=== PATIENT | female | born 1985 | race Caucasian/White ===

== ENCOUNTER 2017-06-09 14:34 | Emergency (ER) | payer BC ==
--- NOTE | 2017-06-09 14:44 | PDOC ---
History of Present Illness - General History Source: Patient Exam Limitations: No Limitations - History of Present Illness Initial Comments: 06/09/17 15:00 32 y/o F (LMP: last week) with no PMhx presents to the ED with abdominal cramping since last night. She reports the pain is intermittent. She denies recent travel. Denies changes in food intake. Denies history of GI problems. She reports her brother was recently diagnosed with diverticulosis. Denies alcohol, tobacco, or drug use. Denies fever, chills, nausea, vomiting, diarrhea , constipation. She denies dysuria, frequency, urgency, and hematuria. Allergies: none <Flavia Ellis - Last Filed: 06/09/17 18:58> <Bogdan Scott - Last Filed: 06/09/17 19:15> - General Chief Complaint: Pain Stated Complaint: ABD PAIN Time Seen by Provider: 06/09/17 14:44 Past History <Flavia Ellis - Last Filed: 06/09/17 18:58> - Past Medical History Asthma: No Cancer: No Cardiac Disorders: No Diabetes: No HTN: No Seizures: No Thyroid Disease: No - Psycho/Social/Smoking Cessation Hx Anxiety: No Suicidal Ideation: No Smoking History: Never smoked Have you smoked in the past 12 months: No Hx Alcohol Use: No Drug/Substance Use Hx: No Substance Use Type: None Hx Substance Use Treatment: No <Bogdan Scott - Last Filed: 06/09/17 19:15> - Past Medical History Allergies/Adverse Reactions: Allergies Allergy/AdvReac Type Severity Reaction Status Date / Time No Known Allergies Allergy Verified 06/09/17 14:48 Home Medications: Ambulatory Orders NK [No Known Home Medication] 06/09/17 Review of Systems - Review of Systems Constitutional: No: Chills, Fever HEENTM: No: Throat Pain Respiratory: No: Cough Cardiac (ROS): No: Chest Pain ABD/GI: Yes: See HPI : No: Dysuria, Frequency, Flank Pain Neurological: No: Headache All Other Systems: Reviewed and Negative <Bogdan Scott - Last Filed: 06/09/17 19:15> *Physical Exam - Vital Signs Last Vital Signs Temp Pulse Resp BP Pulse Ox 98 F 71 18 147/75 100 06/09/17 14:35 06/09/17 14:35 06/09/17 14:35 06/09/17 14:35 06/09/17 14:35 - Physical Exam Comments: 06/09/17 15:00 GENERAL: The patient is awake, alert, and fully oriented, in no acute distress. Well-appearing. HEAD: Normal with no signs of trauma. EYES: Pupils equal, round and reactive to light, extraocular movements intact, sclera anicteric, conjunctiva clear with no pallor. ENT: Ears normal, nares patent, oropharynx clear without exudates. Moist mucous membranes. NECK: Normal range of motion, supple without lymphadenopathy, JVD, or masses. LUNGS: Breath sounds equal, clear to auscultation bilaterally. No wheeze/ crackles. HEART: Regular rate and rhythm, normal S1 and S2 without murmur or rub. ABDOMEN: Discomfort in epigastric region, tender with some guarding in the LLQ, no rebound, no referred pain. Soft/nondistended. BS wnl. No palpable masses. No hepatosplenomegaly. EXTREMITIES: Normal range of motion, no edema. No clubbing or cyanosis. No cords, erythema, or tenderness. NEUROLOGICAL: Cranial nerves II through XII grossly intact. Normal speech, normal gait. PSYCH: Normal mood, normal affect. SKIN: Warm, Dry, normal turgor, no rashes or lesions noted. <Flavia Ellis A - Last Filed: 06/09/17 18:58> ED Treatment Course - LABORATORY CBC & Chemistry Diagram: 06/09/17 15:20 06/09/17 14:51 - RADIOLOGY Radiograph Interpretation: 06/09/17 18:58 Abdomen & Pelvis CT Reported by Dr. Onel Mary Impression: No gross colonic diverticula or wall thickening is present to suggest colitis/acute diverticulitis. 1.6 cm right ovarian cyst/dominant follicle and 1.1 cm left ovarian cyst/dominant follicle. No free air or free fluid in the abdomen pelvis. No CT evidence of an acute process is identified to explain the patient's symptoms. Correlate clinically for further evaluation and follow-up. <Flavia Ellis - Last Filed: 06/09/17 18:58> - LABORATORY CBC & Chemistry Diagram: 06/09/17 15:20 06/09/17 14:51 <Bogdan Scott - Last Filed: 06/09/17 19:15> Medical Decision Making - Medical Decision Making 06/09/17 14:53 32-year-old female with a past medical history presents with persistent and worsening abdominal pain since last night. Associated with anorexia but no nausea/vomiting/diarrhea, no urinary complaints, just cramping pain that is intermittent and predominantly in the upper abdomen. No recent travel/sick contacts/diarrhea change/antibiotics, no surgical history. Vital signs normal. Exam as noted with tenderness greatest in the left lower quadrant but no peritoneal findings. 32-year-old female with worsening abdominal pain since yesterday, localizing findings to the left lower quadrant which could be concerning for colitis versus diverticulitis. As family history of diverticulosis, never had endoscopy/ colonoscopy herself. 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 Labs, urinalysis IV fluids, pain control, nausea control CT of the abdomen and pelvis Reassess 06/09/17 17:01 Labs are within normal limits, no leukocytosis, normal lipase, negative urinalysis. Feels better after pain medications. Awaiting CAT scan, dispo accordingly. 06/09/17 19:12 CT of the abdomen and pelvis is normal except for bilateral 1-1.6 cm ovarian cysts but otherwise uncomplicated. Her pain has resolved, her exam has improved without any focal tenderness or guarding, she is tolerating by mouth, and agrees with discharge plan. Understands return criteria. <Bogdan Sctot - Last Filed: 06/09/17 19:15> *DC/Admit/Observation/Transfer - Attestations Scribe Attestion: 06/09/17 15:00 Documentation prepared by Flavia Ellis, acting as medical sales for Bogdan Scott MD. <Flavia Ellis - Last Filed: 06/09/17 18:58> <Bogdan Scott - Last Filed: 06/09/17 19:15> Diagnosis at time of Disposition: Abdominal pain Qualifiers: Abdominal location: generalized Qualified Code(s): R10.84 - Generalized abdominal pain Cyst of ovary Qualifiers: Laterality: bilateral Qualified Code(s): N83.201 - Unspecified ovarian cyst, right side; N83.202 - Unspecified ovarian cyst, left side - Discharge Dispostion Disposition: HOME Condition at time of disposition: Improved - Patient Instructions Printed Discharge Instructions: DI for Abdominal Pain-Adult, DI for Ovarian Cyst Additional Instructions: Activity as tolerated, stay hydrated. Blood tests, urine test, and a CAT scan of the abdomen and pelvis showed no acute abnormalities other than ovarian cysts that were otherwise uncomplicated. Your symptoms could have been due to a mild viral stomach infection, which is usually self resolving. You should follow up with your primary doctor as soon as possible regarding today's emergency department visit. Return to the emergency department for any new or concerning symptoms, including persistent or worsening pain, bloody vomit or stool, fevers or chills , dehydration.
[2017-06-09] MEDS ORDERED: ONDANSETRON 4 MG/2 ML VIAL IVPB ONE (14:51)
[2017-06-09] MEDS ORDERED: SODIUM CHLORIDE 1,000 ML IV ONE (14:51)
[2017-06-09] MEDS ORDERED: morphine CARPU-JECT 4 MG/1 ML DISP.SYRIN IVPUSH ONE (14:51)
[2017-06-09 14:52] VITALS: BP 147/75; PULSE 71; TEMP 98; BMI 20.5
[2017-06-09] MEDS ORDERED: morphine CARPU-JECT 2 MG/1 ML DISP.SYRIN ONE (14:59)
[2017-06-09] MEDS ORDERED: ONDANSETRON 4 MG/2 ML VIAL ONE (14:59)
[2017-06-09 15:38] LABS: BASOPHIL 0.4 % (0-2.0); EOSINOPHIL 1.4 % (0-4.5); MCH 30.8 pg (25.7-33.7); MCHC 34.3 g/dl (32.0-36.0); MEAN CELL VOLUME 89.7 fl (80-96); MEAN PLT VOLUME 9.4 fl (7.5-11.1); NEUTROPHILS 63.9 % (42.8-82.8); PLATELET COUNT 238 K/MM3 (134-434); RDW 11.6 % (11.6-15.6); WHITE BLOOD COUNT 8.1 K/mm3 (4.0-10.8)
[2017-06-09 15:43] LABS: PH,URINE 6.5 (4.5-8); URINE APPEARANCE Clear; URINE BILIRUBIN Negative (NEGATIVE); URINE BLOOD Negative (NEGATIVE); URINE GLUCOSE (UA) Negative (NEGATIVE); URINE KETONE Negative (NEGATIVE); URINE LEUK ESTERASE Negative (NEGATIVE); URINE NITRITE Negative (NEGATIVE); URINE PROTEIN Negative (NEGATIVE); URINE UROBILINOGEN 0.2 (0.2-1.0)
[2017-06-09 15:44] LABS: URINE COLOR YELLOW
[2017-06-09 15:57] LABS: ALBUMIN 4.8 g/dl (3.5-5.0); ALK PHOS 48 U/L (32-92); ANION GAP 8 (8-16); CALCIUM 10.1 mg/dl (8.4-10.2); CO2 27 mmol/L (22-28); CREATININE 0.6 mg/dl (0.6-1.3); GLUCOSE,RANDOM 99 mg/dl (74-106); SGOT/AST 21 U/L (10-42); SGPT/ALT 20 U/L (10-40); TOT PROT 7.4 g/dl (6.4-8.3)
== END 2017-06-09 19:36 | disposition home or self-care (01) ==
LOC: FER 14:34
PROC: 3E033NZ Introduction of Analgesics, Hypnotics, Sedatives into Peripheral Vein, Percutaneous Approach (ICD-10-PCS; principal; 2017-06-09)
PROC: 3E033GC Introduction of Other Therapeutic Substance into Peripheral Vein, Percutaneous Approach (ICD-10-PCS; 2017-06-09)
PROC: 3E0337Z Introduction of Electrolytic and Water Balance Substance into Peripheral Vein, Percutaneous Approach (ICD-10-PCS; 2017-06-09)
DX: N83.202 Unspecified ovarian cyst, left side (principal); N83.201 Unspecified ovarian cyst, right side
CPT/HCPCS: 36415; 74177-TC; 80053; 81003; 83690; 84703; 85025; 99284-25

== ENCOUNTER 2019-01-01 15:26 | Emergency (ER) | payer BC ==
[2019-01-01 15:33] VITALS: BP 98/81; PULSE 77; TEMP 97.7; BMI 23.1
--- NOTE | 2019-01-01 16:14 | PDOC ---
History of Present Illness - General Chief Complaint: Pain, Acute Stated Complaint: LEG PAIN Time Seen by Provider: 01/01/19 15:55 History Source: Patient Exam Limitations: No Limitations - History of Present Illness Initial Comments: 01/01/19 16:08 Patient is 6 months and sent from [facility] after clearance for evaluation of pain to her right leg. Has suffered from a tortuous and painful varicosities pain and last and was concerned may have a blood clot in her leg. Denies fever, denies swelling to her right leg or calf, denies redness or heat. Has no history of blood clots. Timing/Duration: getting worse, changing over time, intermittent Severity: mild, moderate Associated Symptoms: reports: denies symptoms. denies: cough, fever/chills, headaches Past History - Travel Traveled outside of the country in the last 30 days: No Close contact w/someone who was outside of country & ill: No - Past Medical History Allergies/Adverse Reactions: Allergies Allergy/AdvReac Type Severity Reaction Status Date / Time No Known Allergies Allergy Verified 01/01/19 15:33 Home Medications: Ambulatory Orders Pnv No.95/Ferrous Fum/Folic AC [ Formula] 1 each PO DAILY 01/01/19 Asthma: No Cancer: No Cardiac Disorders: No COPD: No Diabetes: No HTN: No Seizures: No Thyroid Disease: No - Suicide/Smoking/Psychosocial Hx Smoking History: Never smoked Have you smoked in the past 12 months: No Hx Alcohol Use: No Drug/Substance Use Hx: No Substance Use Type: None Hx Substance Use Treatment: No Review of Systems - Review of Systems Able to Perform ROS?: Yes Is the patient limited Kazakh proficient: Yes Constitutional: Yes: See HPI. No: Symptoms Reported, Chills, Fever, Malaise HEENTM: Yes: See HPI. No: Symptoms Reported Respiratory: Yes: See HPI. No: Symptoms reported, Cough, Shortness of Breath Musculoskeletal: Yes: Symptoms Reported, See HPI, Muscle Pain Integumentary: Yes: Symptoms Reported, See HPI, Other (large torturous vericosity to inner right leg) *Physical Exam - Vital Signs Last Vital Signs Temp Pulse Resp BP Pulse Ox 97.7 F 77 14 98/81 99 01/01/19 15:30 01/01/19 15:30 01/01/19 15:30 01/01/19 15:30 01/01/19 15:30 - Physical Exam General Appearance: Yes: Nourished, Appropriately Dressed HEENT: positive: SHANNEN, Normal ENT Inspection, TMs Normal, Pharynx Normal Neck: positive: Supple Respiratory/Chest: positive: Lungs Clear Gastrointestinal/Abdominal: positive: Soft Extremity: positive: Normal Capillary Refill, Normal Range of Motion. negative : Normal Inspection, Swelling Integumentary: positive: Other (Fortress and tender varicosity running along the inner aspect of her right leg extending from the groin down past mid tibia. Is soft, no erythema, no swelling, calf circumference is equal to left calf circumference. Is able to flex and extend foot, without any reproduce pain or Homans sign. Neurovascular intact to foot with strong pulses. Sensation is intact. There is no evidence of DVT). negative: Normal Color Neurologic: positive: medical stenographer II-XII NML intact, Fully Oriented, Alert, Normal Mood/ Affect, Normal Response, Motor Strength 5/5 Moderate Sedation - Procedure Monitoring Vital Signs: Procedure Monitoring Vital Signs Temperature 97.7 F 01/01/19 15:30 Pulse Rate 77 01/01/19 15:30 Respiratory Rate 14 01/01/19 15:30 Blood Pressure 98/81 01/01/19 15:30 O2 Sat by Pulse Oximetry (%) 99 01/01/19 15:30 Medical Decision Making - Medical Decision Making 01/01/19 16:13 Patient has no clinical evidence of DVT meaning no swelling, no calf tenderness , no history of same. Reports Dr. Roberts had thoughts of same and agrees did not feel ultrasound is necessary at this point. We will encourage continued use of compression stockings and rest/elevation and has a follow-up appointment with [facility] next week. Reviewed signs and symptoms of distress including shortness of breath, fevers, swelling or worsened pain discoloration to leg and return immediately to ER if necessary *DC/Admit/Observation/Transfer Diagnosis at time of Disposition: Varicose vein of leg Qualifiers: Varicose vein complication: pain Laterality: right Qualified Code(s): I83.811 - Varicose veins of right lower extremity with pain - Discharge Dispostion Disposition: HOME Condition at time of disposition: Stable Decision to Admit order: No - Referrals Referrals: Yumiko Rodney MD [Primary Care Provider] - - Patient Instructions Printed Discharge Instructions: DI for Varicose Veins Additional Instructions: Rest, Avoid heavy lifting or exercise until pain and swelling is resolved or until further directed Keep area highly elevated to reduce swelling Continue using compression stockings as directed Followup with [facility] in one to 2 days if not improving, if significantly improved may wait one week for followup with orthopedist May use Tylenol for pain relief - Post Discharge Activity
== END 2019-01-01 16:23 | disposition home or self-care (01) ==
LOC: JERFT 15:26
DX: O26.892 Other specified pregnancy related conditions, second trimester (principal); O22.02 Varicose veins of lower extremity in pregnancy, second trimester; Z3A.24 24 weeks gestation of pregnancy
CPT/HCPCS: 59025; 99281-25

== ENCOUNTER 2019-03-21 21:05 | Inpatient (IN) | payer BC ==
--- NOTE | 2019-03-21 21:49 | HP ---
Past Medical History - Primary Care Physician PCP:: Sameera Ferrell - Admission Chief Complaint: 33yo P 1 @ 38.2 wks with regular painful contructions, no Vb, no LOF, + FM History of Present Illness: 1. GBS pos for Ampicillin History Source: Patient, Medical Record Limitations to Obtaining History: No Limitations - Past Medical History ...: 3 ...Para: 1 ...Term: 1 ...Spon : 1 ... Weeks Gestation by Dates: 38.2 ...EDC by [facility]: 04/02/19 Additional OB History: 2015 male 8lb 4oz Additional Medical History: Right great Saphenous varicose vein - Past Surgical History Past Surgical History: Yes: Tonsillectomy Hx Myomectomy: No Hx Transabdominal Cerclage: No - Smoking History Smoking history: Never smoked Have you smoked in the past 12 months: No - Alcohol/Substance Use Hx Alcohol Use: No History of Substance Use: reports: None - Social History History of Recent Travel: No Home Medications - Allergies Allergies/Adverse Reactions: Allergies Allergy/AdvReac Type Severity Reaction Status Date / Time No Known Allergies Allergy Verified 01/01/19 15:33 - Home Medications Home Medications: Ambulatory Orders Pnv No.95/Ferrous Fum/Folic AC [ Formula] 1 each PO DAILY 01/01/19 Review of Systems - Review of Systems Constitutional: reports: No Symptoms Eyes: reports: No Symptoms HENT: reports: No Symptoms Neck: reports: No Symptoms Cardiovascular: reports: No Symptoms Respiratory: reports: No Symptoms Gastrointestinal: reports: No Symptoms Genitourinary: reports: Other (painful contructions) Breasts: reports: No Symptoms Reported Musculoskeletal: reports: No Symptoms Integumentary: reports: No Symptoms Neurological: reports: No Symptoms Endocrine: reports: No Symptoms Hematology/Lymphatic: reports: No Symptoms Psychiatric: reports: No Symptoms Physical Exam - Maternity Constitutional: Yes: Well Nourished, No Distress Eyes: Yes: WNL, Conjunctiva Clear, EOM Intact HENT: Yes: WNL, Atraumatic, Normocephalic Neck: Yes: WNL Cardiovascular: Yes: WNL, Regular Rate and Rhythm Lungs: Clear to auscultation Breast(s): Yes: WNL - Abdominal Exam/OB Fundal Height: 38 (7lb) Number of Fetuses: Single Presentation: Vertex Contractions: Yes Regularity: Regular Intensity: Mod/Strong Monitor Mode: External Heart Rate (range): 140's Category 2 Heart Rate Location: [facility] Category: II Accelerations: Non-Uniform Decelerations: Variable - Vaginal Exam/OB Vaginal Bleediing: No Dilatation (cm): 7-8cm Amniotic Membrane Status: Bulging Presentation: Vertex/Position Station: -3 - Physical Exam Musculoskeletal: Yes: WNL Extremities: Yes: WNL Edema: No Integumentary: Yes: WNL ...Motor Strength: WNL Psychiatric: Yes: WNL, Alert, Oriented - Labs Lab Results: Bpos/NR/HepBsAg neg/HIV neg/RI/ GCT - 70/GBS pos Assessment/Plan 33yo P1 @ 38.2 wks in active labor Category 2 FHR Admit to L&D Labs, IVF Requested Epidural O2 by fase mask, LLD position, IVF Anticipate EFW 7lb
[2019-03-21] MEDS ORDERED: AMPICILLIN SODIUM 2 GM VIAL ONE (21:59)
[2019-03-21] MEDS ORDERED: DEXTROSE 5%-LACTATED RINGERS 1,000 ML IV SCH (22:00)
[2019-03-21 22:18] LABS: BASO % 0.3 % (0-2.0); EOS % 0.2 % (0-4.5); HEMATOCRIT 38.5 % (32.4-45.2); HEMOGLOBIN 13.1 GM/dL (10.7-15.3); MCH 32.9 pg (25.7-33.7); MEAN CELL VOLUME 96.6 fl (80-96); MEAN PLT VOLUME 9.3 fl (7.5-11.1); MONO % 5.6 % (3.8-10.2); NEUT % 83.9 % (42.8-82.8); PLATELET COUNT 192 K/MM3 (134-434); RBC 3.99 M/mm3 (3.60-5.2); WHITE BLOOD COUNT 17.5 K/mm3 (4.0-10.0)
[2019-03-21 22:31] LABS: INR 0.96 (0.83-1.09); PROTHROMBIN TIME (PATIENT) 11.3 SEC (9.7-13.0)
[2019-03-21 22:34] LABS: ACTIVATED PTT 29.5 SECONDS (25.2-36.5)
[2019-03-21 22:37] LABS: CALCIUM 9.3 mg/dL (8.5-10.1); CREATININE 0.6 mg/dL (0.55-1.3); POTASSIUM 3.5 mmol/L (3.5-5.1)
[2019-03-21] MEDS ORDERED: OXYTOCIN 20 UNITS in 0.9% NS 20 UNIT/1,000 ML INFUS.BAG IV ONE (22:40)
--- NOTE | 2019-03-21 23:23 | PN ---
Progress Note, Labor Vaginal Exam #1 Labor Exam Date: 03/21/19 Labor Exam Time: 22:19 Heart Rate (range): 140 Category 2 Dilatation: 8-9cm Effacement (%): 100 Amniotic Membrane Status: Bulging Presentation: Vertex/Position Station: -3 Remarks: FHR poor contact, difficult to evaluate maternal vs. HR possible bradycardia, with variable decelerations AROM - thick meconium noted Neonatology called Started pushing with patient she rapidly with 2 pushes became fully dialated and proceeded to deliver within 16 min of AROM
--- NOTE | 2019-03-21 23:25 | PN ---
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
[2019-03-21 23:35] LABS: VENOUS PC02 41.6 mmHg (41-51); VENOUS PH 7.3 (7.31-7.41); VENOUS PO2 35.5 mmHg (30-40)
[2019-03-22 01:01] VITALS: BMI 25.5
[2019-03-22] MEDS ORDERED: BISACODYL 10 MG SUPP.RECT RC PRN (01:06)
[2019-03-22] MEDS ORDERED: WITCH HAZEL 50% (TUCKS) 40 PAD/JAR PAD TP PRN (01:06)
[2019-03-22] MEDS ORDERED: METHYLERGONOVINE MALEATE 0.2 MG/1 ML AMP IM PRN (01:06)
[2019-03-22] MEDS ORDERED: BENZOCAINE 20% 57 GM BOTTLE TP PRN (01:06)
[2019-03-22] MEDS ORDERED: BENZOCAINE 28 GM HEMORRHOIDAL OINTMENT TP PRN (01:06)
[2019-03-22] MEDS ORDERED: AMPICILLIN - 2 GM in SODIUM CHLORIDE 100 ML IVPB ONE (01:06)
[2019-03-22] MEDS ORDERED: D5W-LR W/ 20 UNITS OXYTOCIN 20 UNIT/1,000 ML INFUS.BAG IV SCH (01:15)
[2019-03-22] MEDS ORDERED: ACETAMINOPHEN 325 MG TABLET (FP) ONE (01:41)
[2019-03-22] MEDS ORDERED: IBUPROFEN 600 MG TABLET (FP) PO ONE (01:41)
[2019-03-22] MEDS: IBUPROFEN 600 MG TABLET (FP) PO PRN ×3 (01:46→17:17)
[2019-03-22] MEDS: ACETAMINOPHEN 325 MG TABLET (FP) PO PRN ×3 (01:47→17:16)
[2019-03-22] MEDS: FERROUS SO4 325 MG TABLET (FP) PO SCH ×2 (08:45→17:16)
[2019-03-22] MEDS: PRENATAL VITAMINS W/ FOLIC ACID TABLET (FP) PO SCH (09:58)
--- NOTE | 2019-03-22 11:31 | PN ---
Post Progress Note - Subjective Subjective: Patient without acute complaints. Reports tolerating oral intake without nausea or vomiting. Ambulating without dizziness. Denies fevers or chills. Pain well controlled with oral pain medication. without difficulty. Passing flatus. Post Day: 1 Type of Delivery: Vital Signs: Vital Signs Temperature 98.2 F 03/22/19 10:00 Pulse Rate 69 03/22/19 10:00 Respiratory Rate 18 03/22/19 10:00 Blood Pressure 129/78 03/22/19 10:00 O2 Sat by Pulse Oximetry (%) 100 03/21/19 23:45 Breast Exam: Yes: Soft Uterus: Yes: Fundus Firm Abdomen/GI: Yes: Abdomen soft, Tolerating PO Lochia: Yes: Rubra Lochia, amount: Small Perineum: Yes: Intact Activity: Ambulating - Labs Labs: CBC WBC 17.5 K/mm3 (4.0-10.0) H 03/21/19 21:45 RBC 3.99 M/mm3 (3.60-5.2) 03/21/19 21:45 Hgb 13.1 GM/dL (10.7-15.3) 03/21/19 21:45 Hct 38.5 % (32.4-45.2) D 03/21/19 21:45 MCV 96.6 fl (80-96) H 03/21/19 21:45 MCH 32.9 pg (25.7-33.7) 03/21/19 21:45 MCHC 34.0 g/dl (32.0-36.0) 03/21/19 21:45 RDW 13.0 % (11.6-15.6) 03/21/19 21:45 Plt Count 192 K/MM3 (134-434) D 03/21/19 21:45 MPV 9.3 fl (7.5-11.1) 03/21/19 21:45 Absolute Neuts (auto) 14.6 K/mm3 (1.5-8.0) H 03/21/19 21:45 Neutrophils % 83.9 % (42.8-82.8) H 03/21/19 21:45 Lymphocytes % 10.0 % (8-40) D 03/21/19 21:45 Monocytes % 5.6 % (3.8-10.2) 03/21/19 21:45 Eosinophils % 0.2 % (0-4.5) 03/21/19 21:45 Basophils % 0.3 % (0-2.0) 03/21/19 21:45 Nucleated RBC % 0 % (0-0) 03/21/19 21:45 Assessment/Plan 33yo P 2 s/p Doing well, VSS, Afebrile for repeat labs in am cont. routine PP care not breast feeding
[2019-03-23 07:51] LABS: BASO % 0.6 % (0-2.0); EOS % 1.2 % (0-4.5); HEMATOCRIT 33.4 % (32.4-45.2); HEMOGLOBIN 11.4 GM/dL (10.7-15.3); LYMPH % 18.4 % (8-40); MCH 33.2 pg (25.7-33.7); MCHC 34.1 g/dl (32.0-36.0); MEAN CELL VOLUME 97.3 fl (80-96); MONO % 5.7 % (3.8-10.2); NEUT % 74.1 % (42.8-82.8); PLATELET COUNT 193 K/MM3 (134-434); RBC 3.43 M/mm3 (3.60-5.2); RDW 13.2 % (11.6-15.6); WHITE BLOOD COUNT 13.7 K/mm3 (4.0-10.0)
[2019-03-23 08:28] VITALS: BP 122/74; PULSE 78; TEMP 98.3
[2019-03-23] MEDS: FERROUS SO4 325 MG TABLET (FP) PO SCH (08:50)
[2019-03-23] MEDS: IBUPROFEN 600 MG TABLET (FP) PO PRN (08:50)
[2019-03-23] MEDS: ACETAMINOPHEN 325 MG TABLET (FP) PO PRN (08:50)
[2019-03-23] MEDS: PRENATAL VITAMINS W/ FOLIC ACID TABLET (FP) PO SCH ×2 (08:51→09:47)
[2019-03-23] MEDS ORDERED: SENNOSIDES/DOCUSATE COMBO (SENNA PLUS) TABLET (UD) PO PRN (22:00)
== END 2019-03-23 09:40 | disposition home or self-care (01) | DRG 807 ==
LOC: JLDR 21:05 → J3W 03-22 02:01
PROVIDERS: ADMIT Obstetrics & Gynecology; ATTEND Obstetrics & Gynecology
PROC: 10E0XZZ Delivery of Products of Conception, External Approach (ICD-10-PCS; principal; 2019-03-21)
DX: O80 Encounter for full-term uncomplicated delivery (principal); Z37.0 Single live birth; Z3A.38 38 weeks gestation of pregnancy
CPT/HCPCS: 36415; 59409; 80048; 82803; 85025; 85610; 85730; 86593; 86850; 86900; 86901; 87389

== ENCOUNTER 2023-02-23 04:17 | Day surgery (SDC) | payer BC ==
[2023-02-19 10:54] VITALS: BMI 20.3
[2023-02-23] MEDS ORDERED: MIDAZOLAM HCL 2 MG/2 ML SINGLE DOSE VIAL ONE (09:55)
[2023-02-23] MEDS ORDERED: PROPOFOL 20 ML ONE (09:55)
[2023-02-23] MEDS ORDERED: ONDANSETRON 4 MG/2 ML VIAL IVPUSH PRN (11:07)
[2023-02-23] MEDS ORDERED: LACTATED RINGERS SOLUTION 1,000 ML IV SCH (11:15)
[2023-02-23 13:27] VITALS: RESP 20; TEMP 97.4
[2023-02-23 13:48] VITALS: BP 115/65; PULSE 67
== END 2023-02-23 14:14 | disposition home or self-care (01) ==
LOC: JASU-SURG 04:17
PROVIDERS: ATTEND Obstetrics & Gynecology
PROC: 0UBL0ZZ Excision of Vestibular Gland, Open Approach (ICD-10-PCS; principal; 2023-02-23 10:00)
DX: N75.0 Cyst of Bartholin's gland (principal)
CPT/HCPCS: 81025; 94760